=== PATIENT | female | born 1990 | race Hispanic/Latino ===

== ENCOUNTER 2020-08-14 02:58 | Inpatient (IN) | payer SELFPAY ==
[~2020-08-14] VITALS: Ht 152.4 cm; Wt 62.0 kg
[2020-08-14] VITALS (9 sets, daily range): BP systolic 88–108; BP diastolic 41–62
--- NOTE | 2020-08-14 03:02 | NUR ---
PT AMBULATED TO ROOM 10 AND TRIAGED.
--- NOTE | 2020-08-14 03:03 | NUR ---
PT. WITH C/O PERIUMBILICAL PAIN SINCE 1200. ABD SOFT WITH + BOWEL SOUNDS.
[2020-08-14 03:30] LABS: HEMATOCRIT 38.5 % (37.0-47.0); HEMOGLOBIN 13.1 g/dl (12.0-16.0); IMMATURE GRANULOCYTES 0.3 % (0.0-5.0); MEAN CELL VOLUME 88.7 fL CALC (80.0-100.0); MEAN CORPUSCULAR HGB 30.2 pG CALC (26.0-32.0); NEUT# 15.58 thou/uL (2.00-7.15); RED BLOOD COUNT 4.34 mill/uL (4.20-5.60); RED CELL DISTRI WIDTH 13.3 % (11.5-15.5)
[2020-08-14 03:31] LABS: URINE BILIRUBIN - DIPSTICK NEGATIVE (NEGATIVE); URINE BLOOD DIPSTICK TRACE-LYSED (NEGATIVE); URINE COLOR YELLOW; URINE GLUCOSE - DIPSTICK NEGATIVE (NEGATIVE); URINE KETONE NEGATIVE (NEGATIVE); URINE NITRITE - DIPSTICK NEGATIVE (Negative); URINE PH 5.5 (4.5-8.0); URINE PROTEIN - DIPSTICK NEGATIVE (NEG-TRACE); URINE SPECIFIC GRAVITY >=1.030; URINE UROBILINOGEN - DIPSTICK 0.2 E.U./dL (0.2)
[2020-08-14 03:32] LABS: URINE LEUK ESTERASE SMALL (NEGATIVE)
--- NOTE | 2020-08-14 03:32 | NUR ---
IV AND PO MEDS GIVEN PER MD ORDER.
[2020-08-14 03:43] LABS: URINE RBC 0-2 RBC/hpf (0-5); URINE SQUAMOUS EPITHELIAL CELL MANY EPI/hpf (0-FEW); URINE WBC 0-2 WBC/hpf (0-5)
[2020-08-14 03:49] LABS: ALBUMIN 4.4 g/dL (3.2-5.0); ALKALINE PHOSPHATASE 115 u/l (38-126); AMYLASE 79 u/l (30-110); ANION GAP 14 (6-22 (CALC)); BILIRUBIN, TOTAL 0.4 mg/dL (0.0-1.4); BUN 15 mg/dL (7-17); BUN/CREATININE RATIO 26 (12-20 (CALC)); CARBON DIOXIDE 26 mmol/l (22-30); CHLORIDE 104 mmol/l (95-108); CREATININE 0.6 mg/dL (0.5-1.0); GFR > 60 ML/MIN (>=60 (CALC)); GFR FOR AFR.AMER. > 60 ML/MIN (>=60 (CALC)); LIPASE 96 u/l (23-300); POTASSIUM 3.8 mmol/l (3.5-5.1); SGOT/AST 29 u/l (14-36); SODIUM 141 mmol/l (137-146); TOTAL PROTEIN 8.1 g/dL (6.3-8.2)
--- NOTE | 2020-08-14 04:00 | NUR ---
PT. STATES HER ABD. PAIN IS NOW DECREASED TO A 3 ON A SCALE OF 1-10.
--- NOTE | 2020-08-14 04:12 | NUR ---
PT. TAKING GASTROGRAFIN PER MD ORDER.
--- NOTE | 2020-08-14 05:20 | NUR ---
PT. FINISHED GASTROGRAPHIN NO S/S OF NAUSEA AND VOMITING.
--- NOTE | 2020-08-14 06:04 | NUR ---
PT. TO X-RAY.
--- NOTE | 2020-08-14 06:52 | NUR ---
IN ROOM TO DISCUSS CLINICAL FINDINGS WITH PT. VERBALIZED UNDERSTANDING. ER STAFF SPOKE TO PT. IN [place] LANGUAGE OF GREEK.
--- NOTE | 2020-08-14 07:00 | NUR ---
REPORT RECEIVED, PATIENT DENIES ANY PAIN AT THIS TIME AND IS RESTING COMFORTABLY IN STRETCHER. CALL BRENDEN JONES.
--- NOTE | 2020-08-14 07:55 | NUR ---
PATIENT AWARE OF PLAN OF CARE AND WAIT TIME. CALL [facility]COX WITHIN REACH, IV FLUIDS AND ZOSYN INFUSING WITH NO DIFFICULTY. CALL WILCOX WIHTIN REACH.
--- NOTE | 2020-08-14 08:20 | NUR ---
ATTEMPTED TO CALL REPORT, NURSE WILL CALL BACK.
--- NOTE | 2020-08-14 08:57 | NUR ---
PATIENT REPORT TO ZO HURST.
--- NOTE | 2020-08-14 09:10 | NUR ---
Admission Note Report Given to: ZO HURST Transported by: X Wheelchair Stretcher Transported with: X Nurse Transporter X Patent IV O2 Natural Resources Engineer Location: ICU X MS2 PATIENT TO ROOM 272 IN STABLE CONDITION.
--- NOTE | 2020-08-14 09:13 | NUR ---
REPORT WAS RECEIVED FROM DARIUSZ. PATIENT CAME VIA WHEELCHAIR BY RAYA. PATIENT AMBULATED TO BED . CONTINUOUS WELD PIPE MILL SUPERVISOR IN ROOM TO OBTAIN VS.
--- NOTE | 2020-08-14 09:23 | NUR ---
ASSESSMENT DONE. PATIENT IS A&O X3. RESPS EVEN AND UNLABORED. PATIENT STATED PAIN ABD 6/10 BUT REFUSED PAIN MEDICATIONS AT THIS TIME. IVF INFUSING WELL. SKIN INTACT. PATIENT IS NPO. PATIENT DENIES ANY NEEDS AT THIS TIME. SAFETY PRECAUTIONS REINFORCED AND CALL LIGHT IN REACH.
--- NOTE | 2020-08-14 10:09 | NUR ---
PATIENT WENT TO OR VIA STRETCHTER BY NURSE AGNES.
--- NOTE | 2020-08-14 12:43 | NUR ---
PATIENT CAME FROM OR VIA STRETCHER BY AGNES. PATIENT IS ALERT. PATIENT STATED PAIN IN ABD 5/10 BUT REFUSED PAIN MEDICATION AT THIS TIME. X3 INCISION IN ABD CDI. ICE CHIPS AND WATER PROVIDED. PATIENT DENIES ANY OTHER NEEDS AT THIS TIME. CALL LIGHT IN REACH.
--- NOTE | 2020-08-14 15:47 | NUR ---
PATIENT IS RESTING IN BED WITH NO S/S OF DISTRESS NOTED. PATIENT DENIES PAIN AT THIS TIME OR NEEDS. CALL LIGHT IN REACH.
--- NOTE | 2020-08-14 17:31 | NUR ---
MEDICATED AT THIS TIME WITH 5MG PERCOCET AT THIS TIME FOR PAIN OF 4 OUT OF A PAIN SCALE OF 0-10. PATIENT STATES SHE WOULD LIKE TO GO HOME AND FEELS SHE WILL BE GOOD THERE. ABDOMINAL SURGERY SITES (3) ARE INTACT AND DERMABOND IN PLACE. PATIENT ADVISED ON D/C INSTRUCTIONS AT THIS TIME AND VERBALIZEA UNDERSTANDING.
--- NOTE | 2020-08-14 17:57 | NUR ---
PATIENT D/C AT THIS TIME D/C INSTRUCTION GONE OVER WITH JORDYN RAZO TRANSLATING. PATIENT VERBALIZED UNDERSTANDING OF D/C INSTRUCTIONS AT THIS TIME. IV WAS REMOVED IV CATH TIP INTACT. PATIENT STATED HER PAIN IS A 2 AT THIS TIME AND THAT THE PAIN MEDICATION WAS WORKING.
--- NOTE | 2020-08-14 18:23 | NUR ---
Discharge instructions given. Patient verbalizes understanding of same. Discharged in stable condition via to Home with family. All belongings sent with pt.
--- NOTE | 2020-08-24 08:23 | NUR ---
ATTEMPTED TO CALL PATIENT TO SCHEDULE POST OP FOLLOW UP APPOINTMENT X 3. NO RETURN CALL. NO PRIMARY ON RECORD TO FORWARD NOTES.
== END 2020-08-14 18:23 | disposition home or self-care (01) | DRG 343 ==
LOC: ED 02:58 → ED-I 06:46 → ED 06:58 → MS2 06:59
PROVIDERS: Family Medicine; ADMIT Surgery; ATTEND Surgery
PROC: 0DTJ4ZZ Resection of Appendix, Percutaneous Endoscopic Approach (ICD-10-PCS; principal; 2020-08-14)
DX: K35.80 Unspecified acute appendicitis (principal); Z20.822 Contact with and (suspected) exposure to COVID-19
CPT/HCPCS: J0131; Q9967